=== PATIENT | male | born 1995 | race Caucasian/White ===

== ENCOUNTER 2022-06-03 15:22 | Emergency (ER) | payer OTHER ==
[2022-06-03] MEDS ORDERED: Ondansetron 4 MG/2 ML SDV IVPUSH ONE (17:01)
[2022-06-03] MEDS ORDERED: Sodium Chloride 0.9% 10 ML Syringe FLUSH PRN (17:01)
[2022-06-03] MEDS ORDERED: Sodium Chloride 0.9% 1,000 ML IV SCH (17:15)
[2022-06-03] MEDS ORDERED: Sodium Chloride 0.9% 1,000 ML ONE (17:16)
[2022-06-03] MEDS ORDERED: LORazepam 2 MG/ML SDV IVPUSH ONE (17:39)
== END 2022-06-03 20:05 | disposition home or self-care (01) ==
LOC: JD.ED 15:22
DX: F10.129 Alcohol abuse with intoxication, unspecified (principal); Z79.899 Other long term (current) drug therapy
CPT/HCPCS: 36415; 80053; 80143; 80179; 80306; 80307; 83735; 85025; 96361; 96374; 96375; 99284; J2060; J2405; J3490; J7030

== ENCOUNTER 2022-06-03 21:55 | Emergency (ER) | payer OTHER ==
[2022-06-03] MEDS ORDERED: Lactated Ringers 1,000 ML IV ONE (23:37)
[2022-06-04] MEDS ORDERED: Lactated Ringers 1,000 ML IV SCH (01:30)
== END 2022-06-04 01:58 | disposition home or self-care (01) ==
LOC: JD.ED 21:55
DX: F10.139 Alcohol abuse with withdrawal, unspecified (principal)
CPT/HCPCS: 36415; 80053; 80143; 80179; 80306; 80307; 85025; 99282; 99283

== ENCOUNTER 2022-06-06 23:33 | Emergency (ER) | payer OTHER | END 2022-06-07 01:25 | disposition home or self-care (01) | LOC: JD.ED 23:33 | DX: T51.91XA Toxic effect of unspecified alcohol, accidental (unintentional), initial encounter (principal); F10.20 Alcohol dependence, uncomplicated; F50.81 Binge eating disorder; F17.290 Nicotine dependence, other tobacco product, uncomplicated; Z79.899 Other long term (current) drug therapy | CPT/HCPCS: 99282; 99283 ==

== ENCOUNTER 2022-06-09 12:43 | Emergency (ER) | payer OTHER ==
[2022-06-09] MEDS ORDERED: HYDROmorphone 0.5 MG/0.5 ML Syringe IVPUSH ONE (13:24)
[2022-06-09] MEDS ORDERED: Ondansetron 4 MG/2 ML SDV IVPUSH ONE (13:24)
[2022-06-09] MEDS ORDERED: Sodium Chloride 0.9% 1,000 ML IV STA (13:24)
[2022-06-09] MEDS ORDERED: LORazepam 2 MG/ML SDV IVPUSH ONE ×2 (13:52→14:48)
== END 2022-06-09 17:48 | disposition home or self-care (01) ==
LOC: JD.ED 12:43
DX: F10.10 Alcohol abuse, uncomplicated (principal); Y90.0 Blood alcohol level of less than 20 mg/100 ml
CPT/HCPCS: 36415; 80053; 80143; 80179; 80306; 80307; 84443; 85007; 85027; 93005; 96361; 96374; 96375; 96376; 99285; J2060; J2405; J7030; 93010; 99282

== ENCOUNTER 2022-09-08 12:45 | Inpatient (IN) | payer OTHER ==
[2022-09-08] MEDS ORDERED: Sodium Chloride 0.9% 1,000 ML IV ONE ×2 (13:19→15:09)
[2022-09-08] MEDS ORDERED: Sodium Chloride 0.9% 10 ML Syringe FLUSH PRN (13:19)
[2022-09-08] MEDS ORDERED: Promethazine 25 MG in Sodium Chloride 0.9% 50 ML IV ONE (13:19)
[2022-09-08] MEDS ORDERED: Thiamine 100 MG in Sodium Chloride 0.9% 100 ML IV ONE (17:13)
[2022-09-08] MEDS ORDERED: LORazepam 2 MG/ML SDV IVPUSH ONE ×2 (17:17→19:23)
[2022-09-08] MEDS ORDERED: LORazepam 2 MG/ML SDV ONE (17:19)
[2022-09-08] MEDS: cloNIDine 0.1 MG Tab PO SCH (18:14)
[2022-09-08] MEDS: traZODone 50 MG Tab PO SCH (18:17)
[2022-09-08] MEDS: Enoxaparin 30 MG/0.3 ML Syringe SUBCUT SCH (18:18)
[2022-09-08] MEDS: Dextrose 5%-0.45% NaCl 1,000 ML IV SCH (18:45)
[2022-09-08] MEDS: Pantoprazole 40 MG Vial IVPUSH SCH ×2 (19:24→20:41)
[2022-09-08] MEDS: LORazepam 2 MG/ML SDV IVPUSH PRN ×2 (22:43→23:57)
[2022-09-09] MEDS: Dextrose 5%-0.45% NaCl 1,000 ML IV SCH ×2 (02:12→10:33)
[2022-09-09] MEDS: LORazepam 2 MG/ML SDV IVPUSH PRN ×8 (02:12→18:19)
[2022-09-09 06:22] LABS: ESTIMATED GFR 122 mL/min (>60)
[2022-09-09] MEDS: Pantoprazole 40 MG Vial IVPUSH SCH (08:08)
[2022-09-09] MEDS: Enoxaparin 30 MG/0.3 ML Syringe SUBCUT SCH (08:08)
[2022-09-09] MEDS: ACAMPROSATE 333 MG PO SCH (08:09)
[2022-09-09] MEDS ORDERED: Pantoprazole 40 MG Tab.CR PO SCH (09:00)
[2022-09-09] MEDS ORDERED: Venlafaxine 75 MG Cap.ER PO SCH (09:00)
[2022-09-09] MEDS ORDERED: chlordiazePOXIDE 25 MG Cap PO PRN (09:18)
[2022-09-09] MEDS ORDERED: Dextrose 5%-0.45% NaCl 1,000 ML IV SCH (11:45)
[2022-09-09] MEDS: cloNIDine 0.1 MG Tab PO SCH (18:02)
[2022-09-09] MEDS: traZODone 50 MG Tab PO SCH (18:03)
[2022-09-09] MEDS ORDERED: chlordiazePOXIDE 25 MG Cap PO SCH (21:00)
[2022-09-09] MEDS ORDERED: Thiamine 100 MG Tab PO SCH (21:00)
[2022-09-10] MEDS: LORazepam 2 MG/ML SDV IVPUSH PRN ×4 (06:30→15:45)
[2022-09-10 06:46] LABS: ESTIMATED GFR 126 mL/min (>60)
[2022-09-10] MEDS ORDERED: Topiramate 25 MG Tab PO SCH (09:00)
[2022-09-10] MEDS ORDERED: chlordiazePOXIDE 10 MG Cap PO SCH (09:00)
[2022-09-10] MEDS ORDERED: buPROPion 100 MG Tab.SR PO SCH (09:00)
[2022-09-10] MEDS: Enoxaparin 30 MG/0.3 ML Syringe SUBCUT SCH (09:22)
[2022-09-10] MEDS: Pantoprazole 40 MG Vial IVPUSH SCH (09:22)
[2022-09-10] MEDS: ACAMPROSATE 333 MG PO SCH (09:40)
== END 2022-09-10 16:35 | DRG 897 ==
LOC: JD.ED 12:45 → JD.ICU 16:19 → JD.MS 09-09 15:09
PROVIDERS: ADMIT Pediatrics; ATTEND Pediatrics
DX: F10.221 Alcohol dependence with intoxication delirium (principal); F10.239 Alcohol dependence with withdrawal, unspecified; F06.33 Mood disorder due to known physiological condition with manic features; T49.0X5A Adverse effect of local antifungal, anti-infective and anti-inflammatory drugs, initial encounter; F41.9 Anxiety disorder, unspecified; Z79.899 Other long term (current) drug therapy
CPT/HCPCS: 36415; 80053; 80143; 80179; 80306; 80307; 83605; 83735; 84100; 84443; 84484; 85025; 86140; 96361; 96365; 96366; 96375; 99284; 99285-25; A9270-GY; C9113; J1650; J2060; J2550; J3411; J3490; J7030; J7042; U0002

== ENCOUNTER 2022-09-10 21:21 | Emergency (ER) | payer OTHER | END 2022-09-10 22:25 | disposition home or self-care (01) | LOC: JD.ED 21:21 | DX: F10.920 Alcohol use, unspecified with intoxication, uncomplicated (principal) | CPT/HCPCS: 99283 ==